=== PATIENT | female | born 1955 | race Caucasian/White ===

== ENCOUNTER 2017-09-06 09:47 | Emergency (ER) | payer OTHER ==
[~2017-09-06] VITALS: Ht 165.1 cm; Wt 98.2 kg
[2017-09-06 10:47] LABS: HEMATOCRIT 33.1 % (36.0-46.0); HEMOGLOBIN 10.6 G/DL (11.9-15.5); MCH 29.3 PG (29.0-34.0); MCV 91.4 FL (83-99); PLATELET COUNT 408 K/uL (156-360); RBC DIS.WIDTH-CV 14.9 % (11.8-14.6); RBC DIS.WIDTH-SD 49.5 % (39-53); RED BLOOD COUNT 3.62 M/uL (3.80-5.20); WHITE BLOOD COUNT 8.8 K/uL (4.1-10.2)
[2017-09-06 10:56] LABS: CHLORIDE 103 mEq/L (99-109); SODIUM 140 mEq/L (136-147)
[2017-09-06 10:58] LABS: GLUCOSE 141 mg/dL (70-99)
[2017-09-06 11:02] LABS: CREATININE 0.7 mg/dL (0.6-1.3); GFR ESTIMATE (CALCULATED) > 59 mL/min/
[2017-09-06 11:03] LABS: UREA NITROGEN (BUN) 11 mg/dL (9-23)
[2017-09-06 11:07] LABS: TROP-I INTERPRETATION NEGATIVE; TROPONIN-I 0.04 ng/mL (0.0-0.30)
[2017-09-06 11:53] LABS: PTT 36.9 SEC (25-37)
[2017-09-06 13:25] VITALS: BP 106/66
== END 2017-09-06 13:31 | disposition home or self-care (01) ==
LOC: EME 09:47
PROVIDERS: Emergency Medicine Emergency Medical Services
DX: I48.91 Unspecified atrial fibrillation (principal); R07.9 Chest pain, unspecified; R00.2 Palpitations; R94.31 Abnormal electrocardiogram [ECG] [EKG]; E11.9 Type 2 diabetes mellitus without complications; I10 Essential (primary) hypertension; E78.5 Hyperlipidemia, unspecified; Z79.4 Long term (current) use of insulin; Z79.01 Long term (current) use of anticoagulants; Z95.2 Presence of prosthetic heart valve; Z98.890 Other specified postprocedural states; Z85.9 Personal history of malignant neoplasm, unspecified
CPT/HCPCS: 71046; 80048; 84484; 85027; 85610; 85730; 93005; 99281; 99284

== ENCOUNTER 2017-10-08 19:24 | Observation (INO) | payer OTHER ==
[~2017-10-08] VITALS: Ht 167.6 cm; Wt 102.0 kg
[2017-10-08 20:28] LABS: HEMATOCRIT 34.8 % (36.0-46.0); HEMOGLOBIN 11.4 G/DL (11.9-15.5); MCH 28.7 PG (29.0-34.0); MCHC 32.8 G/DL (30.0-36.0); MCV 87.7 FL (83-99); PLATELET COUNT 232 K/uL (156-360); RBC DIS.WIDTH-CV 14.4 % (11.8-14.6); RBC DIS.WIDTH-SD 46.5 % (39-53); RED BLOOD COUNT 3.97 M/uL (3.80-5.20); WHITE BLOOD COUNT 5.6 K/uL (4.1-10.2)
[2017-10-08 20:36] LABS: CHLORIDE 106 mEq/L (99-109); POTASSIUM 3.7 mEq/L (3.7-5.4); SODIUM 141 mEq/L (136-147)
[2017-10-08 20:38] LABS: GLUCOSE 92 mg/dL (70-99)
[2017-10-08 20:42] LABS: CREATININE 0.7 mg/dL (0.6-1.3); GFR ESTIMATE (CALCULATED) > 59 mL/min/
[2017-10-08 20:43] LABS: UREA NITROGEN (BUN) 13 mg/dL (9-23)
[2017-10-08 20:50] LABS: TROP-I INTERPRETATION NEGATIVE; TROPONIN-I < 0.01 ng/mL (0.0-0.30)
[2017-10-08] MEDS ORDERED: COUMADIN2.5 MG PO (22:57)
[2017-10-08] MEDS ORDERED: GLUCOPHAGE500 MG PO (22:57)
[2017-10-08] MEDS ORDERED: LOW DOSE ASPIRI81 M1 PO (22:58)
[2017-10-08] MEDS ORDERED: GLUCOSAMINE H1500 MG PO (22:58)
[2017-10-08] MEDS ORDERED: TOPROL XL100 MG PO (22:58)
[2017-10-09 04:14] VITALS: BP 158/73
[2017-10-09 06:04] LABS: INTER. NORMALIZED RATIO 2.2
[2017-10-09 08:05] VITALS: BP 140/70
[2017-10-09 11:00] VITALS: BP 140/70
[2017-10-09 16:21] VITALS: BP 159/75
== END 2017-10-09 18:29 | disposition home or self-care (01) ==
LOC: EME 19:24 → EDOF 22:00 → 5WEST 22:00 → ENRESERV 22:01 → 5WEST 23:02
PROVIDERS: Emergency Medicine; Hospitalist; Physician Assistant Medical
DX: R13.14 Dysphagia, pharyngoesophageal phase (principal); Z95.2 Presence of prosthetic heart valve; I35.0 Nonrheumatic aortic (valve) stenosis; I48.0 Paroxysmal atrial fibrillation; I10 Essential (primary) hypertension; E78.5 Hyperlipidemia, unspecified; E11.9 Type 2 diabetes mellitus without complications; G47.33 Obstructive sleep apnea (adult) (pediatric); I71.2 Thoracic aortic aneurysm, without rupture; I72.8 Aneurysm of other specified arteries; Z95.828 Presence of other vascular implants and grafts; Z79.82 Long term (current) use of aspirin; Z79.01 Long term (current) use of anticoagulants; Z79.84 Long term (current) use of oral hypoglycemic drugs; Z93.0 Tracheostomy status
CPT/HCPCS: 70450; 70491; 70551; 71260; 74230; 80048; 82948; 84484; 85027; 85610; 92611 GN; 99281; 99285; G0378; G8996 GN CI; G8997 GN CI; G8998 GN CI

== ENCOUNTER 2017-11-26 09:45 | Day surgery (SDC) | payer OTHER ==
[~2017-11-26] VITALS: Ht 167.6 cm; Wt 99.3 kg
[~2017-11-26 09:45] MED LIST: COUMADIN2.5 MG PO; GLUCOPHAGE500 MG PO; GLUCOSAMINE H1500 MG PO; LOVENOX60 MG/0.6 SC; LOW DOSE ASPIRI81 M1 PO; PANTOPRAZOLE SO40 MG PO; TOPROL XL100 MG PO
[2017-11-26] MEDS ORDERED: UNKNOWN ABX (10:10)
[2017-11-26 10:11] VITALS: BP 150/66
[2017-11-26 10:35] LABS: INTER. NORMALIZED RATIO 1.2
[2017-11-26 13:19] VITALS: BP 138/72
[2017-11-26 13:55] VITALS: BP 146/67
== END 2017-11-26 14:00 | disposition home or self-care (01) ==
LOC: SDC 09:45
PROVIDERS: Obstetrics & Gynecology
DX: N84.0 Polyp of corpus uteri (principal); N95.0 Postmenopausal bleeding; I10 Essential (primary) hypertension; E11.9 Type 2 diabetes mellitus without complications; I48.91 Unspecified atrial fibrillation; G47.33 Obstructive sleep apnea (adult) (pediatric); K21.9 Gastro-esophageal reflux disease without esophagitis; Z79.84 Long term (current) use of oral hypoglycemic drugs; Z79.01 Long term (current) use of anticoagulants; Z87.891 Personal history of nicotine dependence
CPT/HCPCS: 82948; 85610; 85730; 88305; J3010; Q0175

== ENCOUNTER 2017-12-01 09:28 | Emergency (ER) | payer OTHER ==
[~2017-12-01] VITALS: Ht 167.6 cm; Wt 98.9 kg
[~2017-12-01 09:28] MED LIST changes: +UNKNOWN ABX
[2017-12-01 10:40] LABS: BASOPHIL COUNT 0.1 K/uL (0-0.1); EOSINOPHIL COUNT 0.2 K/uL (0-0.3); HEMATOCRIT 35.1 % (36.0-46.0); HEMOGLOBIN 11.4 G/DL (11.9-15.5); IMMATURE GRANULOCYTE (%) 0.2 % (0.0-0.7); LYMPHOCYTE (%) 27.7 % (15-42); LYMPHOCYTE COUNT 1.4 K/uL (1.0-2.8); MCHC 32.5 G/DL (30.0-36.0); MONOCYTE (%) 7.3 % (3-12); MONOCYTE COUNT 0.4 K/uL (0-0.8); NEUTROPHIL (%) 60.8 % (45-76); PLATELET COUNT 265 K/uL (156-360); RBC DIS.WIDTH-CV 13.7 % (11.8-14.6); RBC DIS.WIDTH-SD 41.2 % (39-53); RED BLOOD COUNT 4.23 M/uL (3.80-5.20); WHITE BLOOD COUNT 4.9 K/uL (4.1-10.2)
[2017-12-01 10:46] LABS: INTER. NORMALIZED RATIO 1.7
[2017-12-01 10:48] LABS: CHLORIDE 101 mEq/L (99-109); POTASSIUM 3.9 mEq/L (3.7-5.4); SODIUM 139 mEq/L (136-147)
[2017-12-01 10:50] LABS: GLUCOSE 149 mg/dL (70-99)
[2017-12-01 10:54] LABS: CREATININE 0.8 mg/dL (0.6-1.3); GFR ESTIMATE (CALCULATED) > 59 mL/min/; UREA NITROGEN (BUN) 12 mg/dL (9-23)
[2017-12-01 12:26] VITALS: BP 124/82
== END 2017-12-01 12:29 | disposition home or self-care (01) ==
LOC: EME 09:28
PROVIDERS: Emergency Medicine
DX: N93.9 Abnormal uterine and vaginal bleeding, unspecified (principal); Z98.890 Other specified postprocedural states; Z79.01 Long term (current) use of anticoagulants; Z79.82 Long term (current) use of aspirin; I48.91 Unspecified atrial fibrillation; Z95.2 Presence of prosthetic heart valve; E11.9 Type 2 diabetes mellitus without complications; Z79.84 Long term (current) use of oral hypoglycemic drugs; I10 Essential (primary) hypertension; Z87.891 Personal history of nicotine dependence
CPT/HCPCS: 80048; 85025; 85610; 99281; 99285

== ENCOUNTER 2017-12-02 10:13 | Emergency (ER) | payer OTHER ==
[~2017-12-02] VITALS: Ht 167.6 cm; Wt 99.2 kg
[2017-12-02 10:55] LABS: HEMOGLOBIN 11.2 G/DL (11.9-15.5); MCH 26.9 PG (29.0-34.0); MCHC 32.9 G/DL (30.0-36.0); MCV 81.7 FL (83-99); PLATELET COUNT 239 K/uL (156-360); RBC DIS.WIDTH-CV 13.7 % (11.8-14.6); RBC DIS.WIDTH-SD 40.8 % (39-53); RED BLOOD COUNT 4.16 M/uL (3.80-5.20); WHITE BLOOD COUNT 5.1 K/uL (4.1-10.2)
[2017-12-02 11:08] LABS: ALBUMIN 3.9 g/dL (3.2-4.8); CHLORIDE 104 mEq/L (99-109); POTASSIUM 4.1 mEq/L (3.7-5.4); SODIUM 140 mEq/L (136-147)
[2017-12-02 11:11] LABS: GLUCOSE 136 mg/dL (70-99)
[2017-12-02 11:13] LABS: TOTAL BILIRUBIN 0.4 mg/dL (0.0-1.0)
[2017-12-02 11:14] LABS: ALKALINE PHOSPHATASE 79 IU/L (3-129)
[2017-12-02 11:15] LABS: CREATININE 0.7 mg/dL (0.6-1.3); GFR ESTIMATE (CALCULATED) > 59 mL/min/; UREA NITROGEN (BUN) 11 mg/dL (9-23)
[2017-12-02 11:16] LABS: AST (GOT) 23 IU/L (2-34)
[2017-12-02 11:17] LABS: ALT (GPT) 28 IU/L (3-49)
[2017-12-02 11:19] LABS: INTER. NORMALIZED RATIO 1.8
[2017-12-02 11:34] LABS: TROP-I INTERPRETATION NEGATIVE; TROPONIN-I < 0.01 ng/mL (0.0-0.30)
[2017-12-02 14:29] LABS: HEMATOCRIT 31.9 % (36.0-46.0); HEMOGLOBIN 10.5 G/DL (11.9-15.5)
[2017-12-02 17:08] VITALS: BP 113/68
== END 2017-12-02 17:05 | disposition home or self-care (01) ==
LOC: EME 10:13
PROVIDERS: Emergency Medicine
DX: N93.9 Abnormal uterine and vaginal bleeding, unspecified (principal); D68.32 Hemorrhagic disorder due to extrinsic circulating anticoagulants; Z79.01 Long term (current) use of anticoagulants; Z98.890 Other specified postprocedural states; R42 Dizziness and giddiness; R00.2 Palpitations; R20.2 Paresthesia of skin; R51 Headache; R93.8 Abnormal findings on diagnostic imaging of other specified body structures; Z95.2 Presence of prosthetic heart valve; Z79.82 Long term (current) use of aspirin; I10 Essential (primary) hypertension; E11.9 Type 2 diabetes mellitus without complications; Z79.84 Long term (current) use of oral hypoglycemic drugs; Z87.891 Personal history of nicotine dependence
CPT/HCPCS: 76856; 80053; 81003; 84484; 85014; 85018; 85027; 85610; 86850; 86870; 86900; 86901; 86905; 86920; 93005; 99281; 99285

== ENCOUNTER 2017-12-26 13:17 | Inpatient (IN) | payer OTHER ==
[~2017-12-26] VITALS: Ht 167.6 cm; Wt 101.5 kg
[2017-12-26] MEDS ORDERED: PERCOCET 5/31 TABLET PO (13:58)
[2017-12-26] MEDS ORDERED: ZOFRAN ODT8 MG PO (13:58)
[2017-12-26] MEDS ORDERED: COUMADIN2.5 MG PO (14:01)
[2017-12-26] MEDS ORDERED: FENOFIBRATE160 M1 PO (14:02)
[2017-12-26] MEDS ORDERED: PRAVASTATIN SOD20 MG PO (14:02)
[2017-12-26 14:38] LABS: HEMATOCRIT 29.2 % (36.0-46.0); HEMOGLOBIN 9.2 G/DL (11.9-15.5); MCH 25.8 PG (29.0-34.0); MCHC 31.5 G/DL (30.0-36.0); MCV 81.8 FL (83-99); PLATELET COUNT 261 K/uL (156-360); RBC DIS.WIDTH-CV 14.6 % (11.8-14.6); RBC DIS.WIDTH-SD 43.5 % (39-53); RED BLOOD COUNT 3.57 M/uL (3.80-5.20)
[2017-12-26 14:48] LABS: ALBUMIN 3.9 g/dL (3.2-4.8); CHLORIDE 104 mEq/L (99-109); POTASSIUM 3.7 mEq/L (3.7-5.4); SODIUM 137 mEq/L (136-147)
[2017-12-26 14:50] LABS: GLUCOSE 138 mg/dL (70-99)
[2017-12-26 14:52] LABS: TOTAL BILIRUBIN 0.7 mg/dL (0.0-1.0)
[2017-12-26 14:54] LABS: ALKALINE PHOSPHATASE 56 IU/L (3-129); CREATININE 0.7 mg/dL (0.6-1.3); GFR ESTIMATE (CALCULATED) > 59 mL/min/
[2017-12-26 14:55] LABS: UREA NITROGEN (BUN) 11 mg/dL (9-23)
[2017-12-26 14:56] LABS: AST (GOT) 14 IU/L (2-34)
[2017-12-26 14:57] LABS: ALT (GPT) 14 IU/L (3-49)
[2017-12-26 15:41] LABS: INTER. NORMALIZED RATIO 4.3
[2017-12-26 15:44] LABS: PTT 42.5 SEC (25-37)
[2017-12-26] MEDS ORDERED: [UNRECOGNIZED DRUG - OTHER] PO (16:27)
[2017-12-26 18:31] VITALS: BP 117/56
[2017-12-27 00:02] VITALS: BP 133/63
[2017-12-27 04:12] VITALS: BP 102/53
[2017-12-27 07:27] LABS: INTER. NORMALIZED RATIO 4.3
[2017-12-27 07:39] LABS: HEMATOCRIT 26.2 % (36.0-46.0); MCH 25.1 PG (29.0-34.0); MCHC 30.5 G/DL (30.0-36.0); MCV 82.1 FL (83-99); PLATELET COUNT 229 K/uL (156-360); RBC DIS.WIDTH-CV 14.9 % (11.8-14.6); RBC DIS.WIDTH-SD 44.6 % (39-53); RED BLOOD COUNT 3.19 M/uL (3.80-5.20)
[2017-12-27 07:44] LABS: CHLORIDE 107 MEQ/L (99-109); CREATININE 0.6 MG/DL (0.6-1.3); GFR ESTIMATE (CALCULATED) > 59 mL/min/; GLUCOSE 141 mg/dL (70-99); POTASSIUM 3.5 MEQ/L (3.7-5.4); SODIUM 140 MEQ/L (136-147); UREA NITROGEN (BUN) 9 mg/dL (9-23)
[2017-12-27 08:00] VITALS: BP 113/56
[2017-12-27 10:54] LABS: HEMOGLOBIN A1c (GLYCOHEMOGLOB) 6.1 % (Below 5.7)
[2017-12-27 12:00] VITALS: BP 123/59
[2017-12-27 16:28] VITALS: BP 128/60
[2017-12-27 20:20] VITALS: BP 132/69
[2017-12-28 00:25] VITALS: BP 128/65
[2017-12-28 03:51] VITALS: BP 121/60
[2017-12-28 06:44] LABS: HEMATOCRIT 24.8 % (36.0-46.0); HEMOGLOBIN 7.6 G/DL (11.9-15.5); MCH 25.2 PG (29.0-34.0); MCHC 30.6 G/DL (30.0-36.0); MCV 82.4 FL (83-99); PLATELET COUNT 228 K/uL (156-360); RBC DIS.WIDTH-SD 45.5 % (39-53); RED BLOOD COUNT 3.01 M/uL (3.80-5.20); WHITE BLOOD COUNT 6.2 K/uL (4.1-10.2)
[2017-12-28 07:03] LABS: C-REACTIVE PROTEIN 154.8 MG/L (0-10); CHLORIDE 109 MEQ/L (99-109); CREATININE 0.6 MG/DL (0.6-1.3); GFR ESTIMATE (CALCULATED) > 59 mL/min/; GLUCOSE 135 mg/dL (70-99); POTASSIUM 3.8 MEQ/L (3.7-5.4); SODIUM 142 MEQ/L (136-147); UREA NITROGEN (BUN) 6 mg/dL (9-23)
[2017-12-28 07:25] VITALS: BP 146/68
[2017-12-28 08:23] LABS: IMM.RETIC FRACTION 12.3 % (3-19); RETIC HGB EQUIVALENT 22.8 (28-36); RETICULOCYTE COUNT 1.4 % (0.5-1.8)
[2017-12-28 08:54] LABS: FERRITIN 42 NG/ML (10-291)
[2017-12-28 09:14] LABS: TRANSFERRIN (TIBC) 277.1 mg/dL (215-380)
[2017-12-28 09:20] LABS: IRON < 10 MCG/DL (35-150); TRANSFERRIN SATUR. 4 % (20-55)
[2017-12-28 09:44] LABS: ERTH.SED.RATE 56 MM/HR (0-30)
[2017-12-28 10:29] LABS: FOLIC ACID (FOLATE) 22.1 NG/ML (5.0-22.0)
[2017-12-28 12:15] VITALS: BP 126/66
[2017-12-28 13:32] LABS: HEMATOCRIT 28.5 % (36.0-46.0); HEMOGLOBIN 8.7 G/DL (11.9-15.5); MCV 82.8 FL (83-99)
[2017-12-28 16:10] VITALS: BP 145/66
[2017-12-28 19:33] LABS: INTER. NORMALIZED RATIO 2.5
[2017-12-28 19:36] LABS: PTT 34.2 SEC (25-37)
[2017-12-28 20:32] VITALS: BP 125/58
[2017-12-29] VITALS (14 sets, daily range): BP systolic 118–151; BP diastolic 56–77
[2017-12-29 06:42] LABS: BASOPHIL (%) 0.9 % (0-1); EOSINOPHIL (%) 3.7 % (0-5); EOSINOPHIL COUNT 0.2 K/uL (0-0.3); HEMATOCRIT 24.4 % (36.0-46.0); HEMOGLOBIN 7.4 G/DL (11.9-15.5); IMMATURE GRANULOCYTE (%) 0.2 % (0.0-0.7); LYMPHOCYTE (%) 32.5 % (15-42); LYMPHOCYTE COUNT 1.5 K/uL (1.0-2.8); MCH 24.8 PG (29.0-34.0); MCHC 30.3 G/DL (30.0-36.0); MCV 81.9 FL (83-99); MONOCYTE (%) 9.5 % (3-12); MONOCYTE COUNT 0.4 K/uL (0-0.8); NEUTROPHIL (%) 53.2 % (45-76); NEUTROPHIL COUNT 2.5 K/uL (1.8-6.4); PLATELET COUNT 225 K/uL (156-360); RBC DIS.WIDTH-CV 14.6 % (11.8-14.6); RBC DIS.WIDTH-SD 44.1 % (39-53); RED BLOOD COUNT 2.98 M/uL (3.80-5.20); WHITE BLOOD COUNT 4.6 K/uL (4.1-10.2)
[2017-12-29 06:44] LABS: INTER. NORMALIZED RATIO 2.4
[2017-12-29 07:50] LABS: ALKALINE PHOSPHATASE 39 IU/L (3-129); ALT (GPT) 7 IU/L (3-49); AST (GOT) 8 IU/L (2-34); CHLORIDE 109 MEQ/L (99-109); CREATININE 0.6 MG/DL (0.6-1.3); GFR ESTIMATE (CALCULATED) > 59 mL/min/; GLUCOSE 130 mg/dL (70-99); POTASSIUM 3.6 MEQ/L (3.7-5.4); SODIUM 143 MEQ/L (136-147); TOTAL BILIRUBIN 0.3 MG/DL (0.0-1.0); TOTAL PROTEIN 5.1 G/DL (6.4-8.3); UREA NITROGEN (BUN) 7 mg/dL (9-23)
[2017-12-30 04:17] VITALS: BP 120/68
[2017-12-30 06:01] LABS: INTER. NORMALIZED RATIO 1.9
[2017-12-30 06:03] LABS: PTT 58.9 SEC (25-37)
[2017-12-30 07:56] VITALS: BP 139/82
[2017-12-30 09:03] LABS: HEMATOCRIT 31.8 % (36.0-46.0); MCH 25.7 PG (29.0-34.0); MCHC 31.4 G/DL (30.0-36.0); MCV 81.7 FL (83-99); RBC DIS.WIDTH-CV 14.9 % (11.8-14.6); RED BLOOD COUNT 3.89 M/uL (3.80-5.20); WHITE BLOOD COUNT 4.9 K/uL (4.1-10.2)
[2017-12-30 09:04] LABS: PLATELET COUNT 293 K/uL (156-360)
[2017-12-30 09:54] LABS: CHLORIDE 106 MEQ/L (99-109); CREATININE 0.6 MG/DL (0.6-1.3); GFR ESTIMATE (CALCULATED) > 59 mL/min/; GLUCOSE 137 mg/dL (70-99); POTASSIUM 3.7 MEQ/L (3.7-5.4); SODIUM 141 MEQ/L (136-147); UREA NITROGEN (BUN) 7 mg/dL (9-23)
[2017-12-30 15:09] VITALS: BP 178/80
[2017-12-30 19:15] VITALS: BP 157/72
[2017-12-30 23:20] VITALS: BP 141/67
[2017-12-31 04:10] VITALS: BP 144/73
[2017-12-31 06:18] LABS: BASOPHIL (%) 0.7 % (0-1); EOSINOPHIL (%) 3.6 % (0-5); EOSINOPHIL COUNT 0.2 K/uL (0-0.3); HEMATOCRIT 30.4 % (36.0-46.0); HEMOGLOBIN 9.7 G/DL (11.9-15.5); IMMATURE GRANULOCYTE (%) 2.9 % (0.0-0.7); LYMPHOCYTE (%) 29.2 % (15-42); LYMPHOCYTE COUNT 1.7 K/uL (1.0-2.8); MCH 26.1 PG (29.0-34.0); MCHC 31.9 G/DL (30.0-36.0); MCV 81.9 FL (83-99); MONOCYTE (%) 9.5 % (3-12); MONOCYTE COUNT 0.6 K/uL (0-0.8); NEUTROPHIL (%) 54.1 % (45-76); NEUTROPHIL COUNT 3.2 K/uL (1.8-6.4); PLATELET COUNT 287 K/uL (156-360); RBC DIS.WIDTH-CV 14.8 % (11.8-14.6); RBC DIS.WIDTH-SD 43.9 % (39-53); RED BLOOD COUNT 3.71 M/uL (3.80-5.20); WHITE BLOOD COUNT 5.9 K/uL (4.1-10.2)
[2017-12-31 06:21] LABS: PTT 63.7 SEC (25-37)
[2017-12-31 06:43] LABS: ALBUMIN 3.3 G/DL (3.2-4.8); ALKALINE PHOSPHATASE 48 IU/L (3-129); ALT (GPT) 7 IU/L (3-49); CHLORIDE 106 MEQ/L (99-109); CREATININE 0.6 MG/DL (0.6-1.3); GFR ESTIMATE (CALCULATED) > 59 mL/min/; GLUCOSE 140 mg/dL (70-99); POTASSIUM 3.9 MEQ/L (3.7-5.4); SODIUM 142 MEQ/L (136-147); TOTAL BILIRUBIN 0.3 MG/DL (0.0-1.0); UREA NITROGEN (BUN) 9 mg/dL (9-23)
[2017-12-31 07:03] LABS: AST (GOT) 12 IU/L (2-34)
[2017-12-31 07:39] VITALS: BP 150/77
[2017-12-31 11:28] VITALS: BP 135/74
[2017-12-31 16:02] VITALS: BP 131/72
[2017-12-31 19:39] VITALS: BP 132/64
[2018-01-01 00:06] VITALS: BP 156/80
[2018-01-01 07:05] VITALS: BP 137/80
[2018-01-01 11:12] VITALS: BP 140/76
[2018-01-01] MEDS ORDERED: ANCEF,KEFZOL1 GM IV (12:41)
== END 2018-01-01 14:52 | disposition home health service (06) | DRG 988 ==
LOC: EME 13:17 → 2EASTP 16:31 → EDOF 16:31 → ENRESERV 16:41 → 2EASTP 18:20
PROVIDERS: Hospitalist; Internal Medicine; Physician Assistant
PROC: 0QBQ0ZX Excision of Right Toe Phalanx, Open Approach, Diagnostic (ICD-10-PCS; principal; 2017-12-29)
PROC: 0J9Q0ZX Drainage of Right Foot Subcutaneous Tissue and Fascia, Open Approach, Diagnostic (ICD-10-PCS; principal; 2017-12-29)
PROC: 30233N1 Transfusion of Nonautologous Red Blood Cells into Peripheral Vein, Percutaneous Approach (ICD-10-PCS; 2017-12-29)
DX: E11.628 Type 2 diabetes mellitus with other skin complications (principal); M86.8X7 Other osteomyelitis, ankle and foot; E11.69 Type 2 diabetes mellitus with other specified complication; I71.2 Thoracic aortic aneurysm, without rupture; E11.42 Type 2 diabetes mellitus with diabetic polyneuropathy; L03.115 Cellulitis of right lower limb; I48.0 Paroxysmal atrial fibrillation; L03.031 Cellulitis of right toe; L02.611 Cutaneous abscess of right foot; Z95.2 Presence of prosthetic heart valve; I10 Essential (primary) hypertension; G47.33 Obstructive sleep apnea (adult) (pediatric); E78.5 Hyperlipidemia, unspecified; Z79.01 Long term (current) use of anticoagulants; Z79.84 Long term (current) use of oral hypoglycemic drugs; R79.1 Abnormal coagulation profile; M65.879 Other synovitis and tenosynovitis, unspecified ankle and foot; D63.8 Anemia in other chronic diseases classified elsewhere; D50.9 Iron deficiency anemia, unspecified; B95.4 Other streptococcus as the cause of diseases classified elsewhere; J45.909 Unspecified asthma, uncomplicated; Z87.891 Personal history of nicotine dependence
CPT/HCPCS: 36415; 73630; 73720; 76937; 80048; 80053; 80202; 82607; 82728; 82746; 82948; 83036; 83540; 83605; 84466; 85014; 85018; 85025; 85027; 85046; 85610; 85651; 85730; 86140; 86850; 86870; 86900; 86901; 86905; 86920; 87040; 87070; 87075; 87077; 87205; 88305; 88311; 99281; 99285; J0690; J2543; J3370; J3480; J7030; J7050; P9016; Q0138; S0020